=== PATIENT | male | born 1960 | race Caucasian/White ===

== ENCOUNTER 2023-11-25 05:34 | Observation (INO) ==
[~2023-11-25 05:34] MED LIST: Naloxone 0.4 mg VIAL 0.4 mg/ml 1 ml VIAL IV PRN
[2023-11-25] MEDS ORDERED: Chlorhexidine MOUTHWASH 0.12% 15 ML UDC ONE (05:47)
[2023-11-25 06:23] LABS: Rapid COVID-19 Molecular Undetected (Undetected)
[2023-11-25] MEDS ORDERED: Thrombin 5,000 UNITS(BOVINE) for Ultrasound Guided Pseudoaneursym ONE (06:30)
[2023-11-25] MEDS ORDERED: Lidocaine 1% w EPI 1:100,000 MDV 20 ML VIAL ONE (06:30)
[2023-11-25] MEDS ORDERED: Gelfoam Sponge SIZE 100 SPONGE ONE (06:31)
[2023-11-25] MEDS ORDERED: ceFAZolin VIAL VIAL ONE (06:31)
[2023-11-25] MEDS ORDERED: Sevoflurane BOTTLE ONE (06:32)
[2023-11-25] MEDS ORDERED: fentaNYL 100 mcg/2 ml 50 MCG/ML VIAL ONE ×2 (06:38→08:51)
[2023-11-25] MEDS ORDERED: Propofol 10 MG/ML 20 ML BTL ONE (06:38)
[2023-11-25] MEDS ORDERED: Dexamethasone IV 4 MG/ML VIAL 1 ml VIAL ONE (06:38)
[2023-11-25] MEDS ORDERED: Midazolam 2 mg/2 ml VIAL 1 mg/ml 2 ml VIAL (2 mg) ONE (06:38)
[2023-11-25] MEDS ORDERED: Ondansetron 4 mg VIAL 2 MG/ML 2 ml VIAL ONE ×2 (06:38→08:51)
[2023-11-25] MEDS ORDERED: Rocuronium 50 mg VIAL 10 mg/ml 5 ml VIAL (50 mg) ONE (06:40)
[2023-11-25] MEDS ORDERED: ceFAZolin 2 GM PREMIX 2 GM/50 ML BAG ONE (06:58)
[2023-11-25] MEDS ORDERED: HYDROmorphone 0.5 MG/0.5 ML SYRINGE ONE (08:12)
[2023-11-25] MEDS ORDERED: Glycopyrrolate IV 0.2 MG/ML 1 ML VIAL ONE (08:20)
[2023-11-25] MEDS ORDERED: Benzocaine/Menthol LOZ MT PRN (08:52)
[2023-11-25] MEDS ORDERED: Senna TAB 8.6 mg TAB PO PRN (08:52)
[2023-11-25] MEDS ORDERED: Ondansetron 4 mg VIAL 2 MG/ML 2 ml VIAL IV PRN (08:52)
[2023-11-25] MEDS ORDERED: Phenol 1.4% Throat Spray BTL MT PRN (08:52)
[2023-11-25] MEDS ORDERED: Morphine 2 MG/ML SYRINGE IV PRN (08:52)
[2023-11-25] MEDS ORDERED: Dextran 70/Hypromellose Tears Eye Drops 15 ml BTL (for Artificials Tears) BOTH EYES PRN (08:52)
[2023-11-25] MEDS: Ondansetron 4 mg VIAL 2 MG/ML 2 ml VIAL IV PRN (08:55)
[2023-11-25] MEDS: fentaNYL 100 mcg/2 ml 50 MCG/ML VIAL IV PRN (08:55)
[2023-11-25] MEDS: Buffered Lidocaine 1% SYRIN 1 ml INTRADERM ONE (10:16)
[2023-11-25] MEDS: Lactated Ringers 1000 ml BAG 1,000 ML IV SCH ×2 (10:17→11:43)
[2023-11-25] MEDS: Nicotine PATCH 21 MG/24 HR PATCH TRANSDERM SCH (10:32)
[2023-11-25] MEDS: HYDROcodone/ACETAMIN 5/325 mg TAB PO PRN ×2 (15:25→21:49)
[2023-11-26] MEDS: Calcium Carb (TUMS) 500 mg CHEW TAB PO PRN (01:06)
[2023-11-26 06:01] VITALS: BP 90/55
== END 2023-11-26 10:15 | disposition home or self-care (01) ==
LOC: SSU 05:34 → OR 05:34
PROVIDERS: ADMIT Neurological Surgery; ATTEND Neurological Surgery

== ENCOUNTER 2023-12-02 09:47 | Observation (INO) ==
[~2023-12-02 09:47] MED LIST changes: +Lidocaine 1% w EPI 1:100,000 MDV 20 ML VIAL ONE; -Naloxone 0.4 mg VIAL 0.4 mg/ml 1 ml VIAL IV PRN; +Thrombin 5,000 UNITS(BOVINE) for Ultrasound Guided Pseudoaneursym ONE; +ceFAZolin VIAL VIAL ONE
[2023-12-02] MEDS ORDERED: Naloxone 0.4 mg VIAL 0.4 mg/ml 1 ml VIAL IV PRN (12:23)
[2023-12-02] MEDS ORDERED: Ondansetron 4 mg VIAL 2 MG/ML 2 ml VIAL IV PRN ×2 (12:23→15:21)
[2023-12-02] MEDS ORDERED: Rocuronium 50 mg VIAL 10 mg/ml 5 ml VIAL (50 mg) ONE (13:25)
[2023-12-02] MEDS ORDERED: Propofol 10 MG/ML 20 ML BTL ONE ×2 (13:31→13:33)
[2023-12-02] MEDS ORDERED: Dexamethasone IV 4 MG/ML VIAL 1 ml VIAL ONE (13:31)
[2023-12-02] MEDS ORDERED: Lidocaine 2% PF 5 ML VIAL ONE (13:31)
[2023-12-02] MEDS ORDERED: fentaNYL 250 mcg/5 ml 50 MCG/ML 5 ml VIAL (250 MCG) ONE (13:31)
[2023-12-02] MEDS ORDERED: Midazolam 5 mg/5 ml VIAL 1 mg/ml 5 ml VIAL (5 mg) ONE (13:31)
[2023-12-02] MEDS ORDERED: Ondansetron 4 mg VIAL 2 MG/ML 2 ml VIAL ONE (13:31)
[2023-12-02] MEDS ORDERED: Thrombin 5,000 UNITS 1 APPLIC KIT - topical use - TOPICAL ONE (13:40)
[2023-12-02] MEDS ORDERED: Chlorhexidine MOUTHWASH 0.12% 15 ML UDC ONE (13:40)
[2023-12-02] MEDS ORDERED: ceFAZolin 2 GM PREMIX 2 GM/50 ML BAG ONE (13:40)
[2023-12-02] MEDS ORDERED: Lidocaine 1% w EPI 1:200,000 SDV 30 ML VIAL ONE (13:40)
[2023-12-02] MEDS: Famotidine IV 10 MG/ML 2 ml VIAL (20 mg) IV ONE (13:47)
[2023-12-02] MEDS ORDERED: ceFAZolin 1 GM ADVAN 1 GM ADDV.VIAL IVPB ONE ×2 (13:59→14:00)
[2023-12-02] MEDS ORDERED: Glycopyrrolate IV 0.2 MG/ML 1 ML VIAL ONE (15:09)
[2023-12-02] MEDS ORDERED: Magnesium Hydroxide LIQ 30 ML UDC PO PRN (15:21)
[2023-12-02] MEDS ORDERED: Dextran 70/Hypromellose Tears Eye Drops 15 ml BTL (for Artificials Tears) BOTH EYES PRN (15:21)
[2023-12-02] MEDS ORDERED: Calcium Carb (TUMS) 500 mg CHEW TAB PO PRN (15:21)
[2023-12-02] MEDS ORDERED: Benzocaine/Menthol LOZ MT PRN (15:21)
[2023-12-02] MEDS ORDERED: Phenol 1.4% Throat Spray BTL MT PRN (15:21)
[2023-12-02] MEDS ORDERED: Senna TAB 8.6 mg TAB PO PRN (15:21)
[2023-12-02] MEDS: Acetaminophen IV 1 GM/100ML 1,000 MG/100 ML BAG IV ONE (15:28)
[2023-12-02] MEDS: Buffered Lidocaine 1% SYRIN 1 ml INTRADERM ONE (15:28)
[2023-12-02] MEDS: Lactated Ringers 1000 ml BAG 1,000 ML IV SCH ×2 (15:29→18:30)
[2023-12-02] MEDS ORDERED: fentaNYL 100 mcg/2 ml 50 MCG/ML VIAL ONE (16:03)
[2023-12-02] MEDS: fentaNYL 100 mcg/2 ml 50 MCG/ML VIAL IV PRN (16:12)
[2023-12-03 06:28] VITALS: BP 111/62
== END 2023-12-03 13:25 | disposition home or self-care (01) ==
LOC: SSU 09:47 → OR 09:47
PROVIDERS: ADMIT Neurological Surgery; ATTEND Neurological Surgery